=== PATIENT | female | born 1930 | race Caucasian/White ===

== ENCOUNTER → 2017-02-14 | Outpatient (CLI) | payer OTHER ==
[~2017-02-14] VITALS: Ht 167.6 cm; Wt 66.2 kg
[~2017-02-14] MED LIST: ATORVASTATIN CA40 MG PO; LISINOPRIL5 MG PO; MOBIC7.5 MG PO; NORCO 5-325 TA1 EACH PO; PROLIA60 MG/1 ML SQ; ZANAFLEX4 MG PO
--- NOTE | ~2017-02-14 | HPC ---
[facility] [address] [place] [address] PAIN MANAGEMENT CONSULTATION Name: OLENA GARCIA Room #: REG GARETT Love#: [id number] Admission: 02/14/17 Attend Phys: Kyle Shane DO Discharge: Date of : 31 Report #: [id number] THIS REPORT FOR: //name// <ELECTRONICALLY SIGNED> By: Kyle Shane DO 02/17/17 1538 1556 05 Kyle Shane DO /nt
--- NOTE | ~2017-02-14 | HPC ---
[facility] [address] [place] [place] [address] PAIN MANAGEMENT CONSULTATION Name: OLENA GARCIA [facility] [id number] Admission: 02/14/17 Attend Phys: Kyle Shane DO Discharge: Date of : 31 Report #: [id number] THIS REPORT FOR: //name// CC: [facility] physician/PCP Kyle Shane HISTORY OF PRESENT ILLNESS: The patient is a very pleasant 86-year-old female, prior seen in consultation 01/30/2017, diagnosed with symptomatic cervical radiculopathy, component of cervical spondylosis. Given a cervical epidural injection at that time, started on meloxicam 7.5 b.i.d., tizanidine 4 mg one-half to one tablet t.i.d. and I did renew hydrocodone 5/325, limit 45 tablets. She returns to pain clinic today noting 70% improvement of cervical radicular pain, which is ongoing, still, however, has some pain primarily in the left neck and shoulder with palpable spasm and trigger points in the left trapezius and splenius capitis. PHYSICAL EXAMINATION: GENERAL: Shows pleasant 86-year-old female. VITAL SIGNS: Stable as noted on the EMR. EXTREMITIES: Cervical range of motion is actually full at this time. Negative Lhermitte, but cervical rotation and sidebending to the left exacerbates pain in the left neck and shoulder, palpable trigger points and spasm in the left trapezius and splenius capitis, otherwise upper extremity strength is preserved. The patient noted a metallic taste in her mouth and some "dryness" in her mouth, which I suspect may have been secondary to the tizanidine (side effects note xerostomia). We discontinued that agent. She is also asking for referral to general technician physician, I suggested the [place] [facility], specifically Dr. Yamile Vazquez or Dr. Yamile Sanford. She was given contact information for this group ([phone]). ASSESSMENT: Symptomatic cervical spondylosis, cervical radiculopathy by history, myofascial pain component. RECOMMENDATIONS: 1. I did renew meloxicam 7.5 b.i.d. Discontinue tizanidine and hydrocodone. 2. Trigger point injections today, left splenius capitis and trapezius. 3. Talked about range of motion and stretching, suggests she find a Tia Chi class. I believe these are available at the [facility] and many community centers. She does live in [facility] and she should be able to find a class if she is still inclined. Today, we talked about trigger point injections today to the left trapezius and splenius capitis, ice this area and stretch as needed and followup simply p.rjanette. [facility] [address] [place] [address] PAIN MANAGEMENT CONSULTATION Name: OLENA GARCIA Room #: REG GARETT Love#: [id number] Admission: 02/14/17 Attend Phys: Kyle Shane DO Discharge: Date of : 31 Report #: [id number] ASSESSMENT: Myofascial pain. PROCEDURE: Trigger point injections x 2. DESCRIPTION OF PROCEDURE: After written informed consent was obtained, the patient was placed in a seated position. Trigger points identified in the left trapezius, the splenius capitis were identified, cleansed with alcohol, using a 25-gauge needle, 40 mg triamcinolone plus 4 mL of 0.5% preservative-free bupivacaine plus 4 mL of 1.5% preservative-free Xylocaine with 1:100,000 epinephrine was injected into and around the trigger points. Needle was removed. The area was cleansed, Band-Aids applied. The patient was monitored for an appropriate period of time, discharged in good and stable condition. <ELECTRONICALLY SIGNED> By: Kyle Shane DO 02/17/17 1538 1555 2120 Kyle Shane DO /nt
[2017-02-14 12:43] VITALS: BP 158/82
== END | disposition home or self-care (01) ==
LOC: PAIN 06:41
DX: M79.1 Myalgia (principal); M47.892 Other spondylosis, cervical region; M54.12 Radiculopathy, cervical region

== ENCOUNTER → 2017-04-11 | Outpatient (CLI) | payer OTHER ==
[~2017-04-11] VITALS: Ht 167.6 cm; Wt 64.4 kg
--- NOTE | ~2017-04-11 | HPC ---
[facility] [address] [place] [address] PAIN MANAGEMENT CONSULTATION Name: OLENA GARCIA Room #: REG GARETT JocelynDonaldoBianka#: [id number] Admission: 04/11/17 Attend Phys: Kyle Shane DO Discharge: Date of : 31 Report #: [id number] THIS REPORT FOR: //name// CC: [facility] physician/PCP Kyle Shane HISTORY OF PRESENT ILLNESS: The patient is a very pleasant 87-year-old female. She was prior seen in the pain clinic earlier this year, had a cervical epidural injection on 01/30/2017 and trigger point injections on 02/14/2017, somewhat lost to followup. Returns to pain clinic today, noting cervical epidural injections afforded near 100% relief for neck and right arm pain, developing some cervical radicular symptoms in the contralateral i.e., left side. Denies antecedent trauma and/or overuse. She has been doing Julian chi and range of motion. PHYSICAL EXAMINATION: Shows a pleasant 87-year-old female. Vital signs as noted on the EMR. Cervical range of motion is modestly limited. Does have positive neural tensioning symptoms with radicular symptoms into the neck, left shoulder, and arm with cervical extension. Grasp is symmetric. Slight decreased left arm strength compared to the right. Some diffuse tenderness in the neck and shoulders, no discrete trigger points are noted. ASSESSMENT: Symptomatic cervical radiculopathy, history of cervical spondylosis and myofascial pain. RECOMMENDATIONS: 1. Renew meloxicam 7.5 mg b.i.d. She has no history of coronary artery disease, gastroesophageal reflux or renal pathology. I suggested she continue this on an as needed basis. We will renew tizanidine 4 mg half to one tablet 3 times a day for spasm. 2. Epidural injection under fluoroscopy today for cervical radicular symptoms and follow up simply on an as needed basis. PROCEDURE: Cervical epidural steroid injection under fluoroscopy. DESCRIPTION OF PROCEDURE: After written and informed consent was obtained including risk of dural puncture, spinal cord trauma, paralysis and increased pain, the patient was taken to the fluoroscopy suite and placed in the prone position, with appropriate abdominal bolstering, neck was flexed, palms under the thighs. Skin was prepped with ChloraPrep. Sterile draping was applied. Skin wheal with 1% Xylocaine was raised. A 22-gauge 3-1/2 inch epidural Tuohy needle was placed via a midline approach at the C7-T1 interspace, advanced under biplanar fluoroscopy using continuous loss of resistance. With appropriate loss of resistance at the expected depth on lateral view, the glass loss of resistance syringe was disconnected. A low volume extension tubing was connected to the needle and a 5 mL syringe. Negative aspiration for cerebrospinal fluid or blood was noted. A 1 mL of Omnipaque was injected which [address] [address] PAIN MANAGEMENT CONSULTATION Name: OLENA GARCIA Room #: REG [facility] Ivan#: [id number] Admission: 04/11/17 Attend Phys: Kyle Shane DO Discharge: Date of : 31 Report #: [id number] showed spread within the epidural space on biplanar fluoroscopy. This was followed with 80 mg of triamcinolone plus 1 mL of 1.5% preservative Xylocaine. Needle was withdrawn to the interspinous ligament, 0.5 mL of Xylocaine was used to flush the needle. The needle was then completely withdrawn. The area was cleansed. Band-Aid was applied. The patient was allowed to move off the procedure table and ambulated to the recovery room, monitored for an appropriate period of time, discharged in good and stable condition. <ELECTRONICALLY SIGNED> By: Kyle Shane DO 04/14/17 0856 [id number] Kyle Shane DO /nt
[2017-04-11 10:31] VITALS: BP 178/89
== END | disposition home or self-care (01) ==
LOC: PAIN 03-13 10:37
DX: M54.12 Radiculopathy, cervical region (principal); M47.892 Other spondylosis, cervical region; M79.1 Myalgia

== ENCOUNTER → 2017-07-10 | Outpatient (CLI) | payer OTHER ==
[~2017-07-10] VITALS: Ht 167.6 cm; Wt 65.9 kg
--- NOTE | ~2017-07-10 | HPC ---
[facility] [place] [place] [address] PAIN MANAGEMENT CONSULTATION Name: OLENA GARCIA Room #: REG GARETT Ivan#: [id number] Admission: 07/10/17 Attend Phys: Kyle Shane DO Discharge: Date of : 31 Report #: [id number] THIS REPORT FOR: //name// CC: [facility] physician/PCP Kyle Shane The patient is a delightful 87-year-old female, last seen in the pain clinic 04/11/2017, treated for symptomatic cervical radiculopathy, myofascial pain, and cervical spondylosis. The patient has had cervical injection 01/30/2017, with good overall improvement of neck, shoulder, and radicular symptoms. Seen in followup 02/14/2017, she had some myofascial pain treated with trigger points. She was somewhat lost to follow up, returned on 04/11/2017, she was having ongoing symptoms with pain in the neck, shoulder, and arms. Looking like radicular symptoms, I repeated a cervical epidural injection at that time, suggested she continue with Meloxicam, she had no history of coronary artery disease, gastroesophageal reflux, or renal pathology. We trialed tizanidine 4 mg half to one tablet 3 times a day for spasm. The patient returns to pain clinic today noting the cervical injection really afforded only nominal relief. She notes Meloxicam has been quite helpful, but she ran out of that prescription. The efficacy of tizanidine she is unsure of. Today, she notes primarily pain in the neck, left side shoulder and upper back (splenius capitis, trapezius, and upper thoracic paravertebral muscles). She rates the pain a 7 on VAS. Notes no cervical radicular symptoms. No pain in the arms specifically. PHYSICAL EXAMINATION: Shows an 87-year-old female, BMI is 23.4 kg/m2, blood pressure 147/78, pulse 72, and respirations 16. Cervical range of motion is actually fairly full. She does have a little cervical thoracic kyphosis. Very tender over the left splenius capitis, trapezius and upper thoracic paravertebral muscles. There are reproducible trigger points noted here. Really no specific pain over the cervical facets and again, rotation, sidebending, and flexion and extension do not significantly exacerbate pain. ASSESSMENT: Myofascial pain component in patient with history of cervical radiculopathy and cervical spondylosis. RECOMMENDATION: 1. Renew Meloxicam 7.5 b.i.d., 60 tablets with 3 refills. Continue tizanidine p.r.n., she really does not require a refill, she uses this very infrequently. 2. Physical therapy for cervical range of motion and general core strengthening and gait balance. 3. Lastly trigger point injections times 3. 4. Follow up simply as needed. PROCEDURE NOTE: Trigger point times 3. [address] [address] PAIN MANAGEMENT CONSULTATION Name: OLENA GARCIA Room #: REG GARETT Love#: [id number] Admission: 07/10/17 Attend Phys: Kyle Shane DO Discharge: Date of : 31 Report #: [id number] PROCEDURE: After written informed consent was obtained, the patient was placed in prone position. Trigger points were identified in the left splenius capitis, left trapezius and left upper thoracic paravertebral muscles were identified. Using a 25-gauge needle, 40 mg triamcinolone plus 5 mL of 0.5% preservative-free bupivacaine plus 5 mL of 1.5% preservative-free Xylocaine with 1:200,000 epinephrine was injected into and around the trigger points. Needle was removed. The area was cleansed, Band-Aids applied. The patient was monitored for an appropriate period of time, discharged in good and stable condition. By: 1533 2101 Kyle Shane DO /nt
[2017-07-10 12:39] VITALS: BP 147/78
== END | disposition home or self-care (01) ==
LOC: PAIN 06:16
DX: M79.1 Myalgia (principal); M54.12 Radiculopathy, cervical region; M47.892 Other spondylosis, cervical region; Z98.890 Other specified postprocedural states; Z79.899 Other long term (current) drug therapy

== ENCOUNTER → 2019-04-19 | Outpatient (CLI) | payer OTHER | LOC: RAD 12:08 | DX: R06.02 Shortness of breath (principal) ==